=== PATIENT | male | born 1985 ===

== ENCOUNTER 2025-03-04 14:04 | Outpatient (CLI) | payer OTHER | END 2025-03-04 14:05 | disposition home or self-care (01) | LOC: BICMRI 14:04 | PROVIDERS: ATTEND Family Medicine | DX: S66.912A Strain of unspecified muscle, fascia and tendon at wrist and hand level, left hand, initial encounter (principal); M25.462 Effusion, left knee; M65.942 Unspecified synovitis and tenosynovitis, left hand; S63.502A Unspecified sprain of left wrist, initial encounter; S62.002A Unspecified fracture of navicular [scaphoid] bone of left wrist, initial encounter for closed fracture; V87.7XXA Person injured in collision between other specified motor vehicles (traffic), initial encounter ==